=== PATIENT | male | born 1940 | race Two or more races ===

== ENCOUNTER 2020-07-10 11:18 | Emergency (ER) | payer MEDICAID, MEDICARE ==
[~2020-07-10] VITALS: Ht 165.1 cm; Wt 63.6 kg
[2020-07-10] MEDS ORDERED: SODIUM CHLORIDE 0.9% 1,000ML IVBOLUS ONE (12:00)
[2020-07-10] MEDS ORDERED: SODIUM CHLORIDE FLUSH 10ML SYR IVF ONE (12:00)
[2020-07-10 12:21] LABS: BASOPHILS % (AUTO) 1 % (0-1); EOSINOPHILS % (AUTO) 0 % (1-7); LYMPHOCYTES % (AUTO) 27 % (22-44); MEAN CORPUSCULAR HEMOGLOBIN 34.9 pg (27.5-34.5); MEAN CORPUSCULAR HGB CONC 34.3 g/dL (33.2-36.2); MEAN PLATELET VOLUME 8.8 fL (7.4-10.4); MONOCYTES % (AUTO) 4 % (2-9); NEUTROPHILS % (AUTO) 67 % (42-75); PLATELET COUNT 210 x10^3/uL (130-400); RED BLOOD COUNT 3.52 x10^6/uL (4.38-5.82); RED CELL DISTRIBUTION WIDTH 13.7 % (9.4-14.8)
[2020-07-10 12:30] LABS: MD NO
[2020-07-10 12:32] LABS: ALANINE AMINOTRANSFERASE 22 U/L (12-78); ALBUMIN 3.3 g/dL (3.4-5.0); ANION GAP 6 mmol/L (5-15); CALCIUM 9.1 mg/dL (8.5-10.1); CHLORIDE 103 mmol/L (98-107); CREATININE 0.87 mg/dL (0.7-1.3)
[2020-07-10 12:35] LABS: ALKALINE PHOSPHATASE 83 U/L (45-117); BILIRUBIN,TOTAL 0.7 mg/dL (0.2-1.0); TOTAL PROTEIN 7.8 g/dL (6.4-8.2)
--- NOTE | 2020-07-10 12:57 | NUR ---
Pt to imaging.
[2020-07-10] MEDS ORDERED: OMNIPAQUE 350 MG/ML, 100ML BOTTLE ONE (13:53)
--- NOTE | 2020-07-10 14:05 | NUR ---
UA sent and SW aware for consult. Pt sleeping, arousable to verbal stimuli, connected to all monitors.
[2020-07-10 14:17] LABS: MICROSCOPIC NOT IND
[2020-07-10 14:24] LABS: AMPHETAMINE SCREEN, URINE Negative (Negative); BARBITURATE SCREEN, URINE Negative (Negative); BENZODIAZEPINE SCREEN, URINE Negative (Negative); CANNABINOID SCREEN, URINE Negative (Negative); COCAINE SCREEN, URINE Negative (Negative); METHADONE SCREEN, URINE Negative (Negative); OPIATE SCREEN, URINE Negative (Negative)
--- NOTE | 2020-07-10 14:44 | NUR ---
Pt remains sleeping, visible chest rise and fall.
--- NOTE | 2020-07-10 15:06 | NUR ---
Social work has been to bedside. Pt ambulatory to bathroom with steady gait.
[2020-07-10 16:35] VITALS: BP 104/44
--- NOTE | 2020-07-10 17:22 | NUR ---
This RN spent an hour educating pt about d/c instructions. Pt given 3 taxi vouchers, one from here to the pharmacy so he can fill his RX. One [facility]. One from the [facility] to the bus stop and a bus pass for the morning so he can take the bus home to [place]. Translation services in use. Pt left food that this RN brought to bedside. Pt ambulatory to d/c with steady gait.
== END 2020-07-10 17:23 | disposition home or self-care (01) ==
LOC: ED 12:34
DX: S09.90XA Unspecified injury of head, initial encounter (principal); R19.7 Diarrhea, unspecified; M54.2 Cervicalgia; R07.89 Other chest pain; R94.31 Abnormal electrocardiogram [ECG] [EKG]; E11.9 Type 2 diabetes mellitus without complications; I10 Essential (primary) hypertension; Y04.8XXA Assault by other bodily force, initial encounter; Y93.89 Activity, other specified; Y92.89 Other specified places as the place of occurrence of the external cause; Y99.8 Other external cause status
CPT/HCPCS: 36415; 70450; 71045; 72125; 74177; 80053; 80307; 80320; 81003; 85025; 93005; 96360; 99285; J7030; Q9967; G0480

== ENCOUNTER 2020-07-14 01:57 | Emergency (ER) | payer MEDICARE, MEDICAID ==
[~2020-07-14] VITALS: Ht 167.6 cm; Wt 70.0 kg
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
--- NOTE | 2020-07-14 04:01 | NUR ---
Per ERP, upon reevaluation of patient, he admitted that he "does not want to live anymore." Patient to be telepsych with labs.
[2020-07-14 04:16] LABS: BASOPHILS % (AUTO) 1 % (0-1); EOSINOPHILS % (AUTO) 0 % (1-7); LYMPHOCYTES % (AUTO) 23 % (22-44); MEAN CORPUSCULAR HGB CONC 34.8 g/dL (33.2-36.2); MEAN PLATELET VOLUME 8.6 fL (7.4-10.4); MONOCYTES % (AUTO) 8 % (2-9); NEUTROPHILS % (AUTO) 69 % (42-75); PLATELET COUNT 202 x10^3/uL (130-400); RED BLOOD COUNT 3.16 x10^6/uL (4.38-5.82); RED CELL DISTRIBUTION WIDTH 13.9 % (9.4-14.8)
[2020-07-14 04:17] LABS: MD NO
[2020-07-14 04:21] LABS: ANION GAP 7 mmol/L (5-15); CALCIUM 8.3 mg/dL (8.5-10.1); CHLORIDE 103 mmol/L (98-107); SALICYLATE LEVEL 4.1 mg/dL (2.8-20.0)
[2020-07-14 04:23] LABS: ALANINE AMINOTRANSFERASE 22 U/L (12-78); ALKALINE PHOSPHATASE 77 U/L (45-117); BILIRUBIN,TOTAL 0.6 mg/dL (0.2-1.0); CREATININE 0.72 mg/dL (0.7-1.3); TOTAL PROTEIN 7.5 g/dL (6.4-8.2)
--- NOTE | 2020-07-14 05:00 | NUR ---
In room to help interpret for telepsych. After patient evaluated, telepsych recommended patient be placed on legal hold. Patient calm and cooperative.
--- NOTE | 2020-07-14 06:20 | NUR ---
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 Patient room secured, belongings locked in cabinet. Sitter outside.
--- NOTE | 2020-07-14 06:31 | NUR ---
TP RN: HAFSA DINERO SUP, DAY SHIFT SUP WILL HAVE TO LOOK FURTHER INTO PT. PRIOR TO ACCEPTING.
--- NOTE | 2020-07-14 07:07 | NUR ---
Report given to ZEKE Angel. Patient care transferred.
--- NOTE | 2020-07-14 08:28 | NUR ---
PROVIDED BREAKFAST TRAY, GIVEN WARM BLANKETS.
--- NOTE | 2020-07-14 09:15 | NUR ---
SWABBED FOR COVID.
--- NOTE | 2020-07-14 10:34 | NUR ---
DISCUSSED NORMA Jane PT.
--- NOTE | 2020-07-14 11:46 | NUR ---
PT IS COVID POSITIVE. ISO PRECAUTIONS IN PLACE. GIVEN WATER AND SNACKS
[2020-07-14 12:56] LABS: AMPHETAMINE SCREEN, URINE Negative (Negative); BARBITURATE SCREEN, URINE Negative (Negative); BENZODIAZEPINE SCREEN, URINE Negative (Negative); CANNABINOID SCREEN, URINE Negative (Negative); COCAINE SCREEN, URINE Negative (Negative); METHADONE SCREEN, URINE Negative (Negative); OPIATE SCREEN, URINE Negative (Negative)
--- NOTE | 2020-07-14 13:30 | NUR ---
pt moved to room 2. assumed care of pt. report from Stanley ALANIS. pt here for SI. pt is also COVID+ at this time, pt now denies SI. pt is ambulatory and has no obvious injury. awaiting psych ASSOCIATE RESEARCH SCIENTIST assessment. room secure, sitter present for safety pt declines lunch tray at this time
--- NOTE | 2020-07-14 14:30 | NUR ---
no changes. pt resting in position of comfort with lights dimmed. eyes closed. legal hold in place pending psych TOOL DESIGN ENGINEER consult room secure. sitter present for safety
--- NOTE | 2020-07-14 15:30 | NUR ---
no changes. pt resting in position of comfort in no apparent distress. room secure. sitter present for safety
--- NOTE | 2020-07-14 16:00 | NUR ---
Edenilson zeng CERTIFIED RESIDENTIAL MEDICATION AIDE and Lauryn FINCH at bedside with receiving operator to discuss POC withj pt. pt aware of COVID dx. pt denies SI/HI
--- NOTE | 2020-07-14 16:32 | NUR ---
pt legal hold to be D/C per Edenilson GARDUNO. pt to be D/C to [facility]. pt has been updated on POC
--- NOTE | 2020-07-14 17:00 | NUR ---
pt given PO coffee and snacks per request. pt ambulating around room without difficulty. no apparent resp. distress
--- NOTE | 2020-07-14 18:00 | NUR ---
no changes. pt resting in position of comfort with eyes closed. lights dimmed for comfort per request
--- NOTE | 2020-07-14 18:40 | NUR ---
awaiting acceptance to [facility] meal tray delivered
[2020-07-14 18:41] VITALS: BP 129/84
--- NOTE | 2020-07-14 19:05 | NUR ---
no changes. awating placement. pt resting report to Freddy ALANIS
--- NOTE | 2020-07-14 19:41 | NUR ---
Pt resting in bed. Pt denies any discomfort.
== END 2020-07-14 21:39 | disposition home or self-care (01) ==
LOC: ED 05:19
DX: U07.1 COVID-19 (principal); S06.0X0A Concussion without loss of consciousness, initial encounter; F32.1 Major depressive disorder, single episode, moderate; R25.9 Unspecified abnormal involuntary movements; I10 Essential (primary) hypertension; E11.9 Type 2 diabetes mellitus without complications; Y04.8XXA Assault by other bodily force, initial encounter; Y93.89 Activity, other specified; Y92.59 Other trade areas as the place of occurrence of the external cause; Y99.8 Other external cause status
CPT/HCPCS: 36415; 70450; 72125; 80053; 80299; 80307; 80320; 80329; 85025; 87426; 99285; G0480